=== PATIENT | female | born 1985 | race Asian ===

== ENCOUNTER → 2020-03-10 17:33 | Outpatient (CLI) | payer OTHER, SELFPAY ==
[2020-03-10 17:54] LABS: Add Manual Diff / Slide Review NO; Basophils Absolute Auto 100 /uL (0-100); Basophils Percent Auto 0.7 % (0-2); Bilirubin Urine UA NEGATIVE (NEGATIVE); Color Urine UA YELLOW; Eosinophils Absolute Auto 200 /uL (0-450); Eosinophils Percent Auto 1.5 % (2-4); Glucose Urine UA NEGATIVE (Negative); Hematocrit 39.1 % (36-46); Hemoglobin 13.2 g/dL (12.0-16.0); Ketones Urine UA NEGATIVE (NEGATIVE); Leukocyte Esterase Urine UA NEGATIVE (NEGATIVE); Lymphocytes Absolute Auto 2100 /uL (1100-4500); Lymphocytes Percent Auto 18.4 % (25-40); Mean Corpuscular HGB Conc 33.7 % (30-36); Mean Corpuscular Hemoglobin 31.3 PG (26-34); Monocytes Absolute Auto 600 /uL (0-900); Monocytes Percent Auto 5.5 % (3-14); Neutrophils Absolute Auto 8300 /uL (1500-7000); Neutrophils Percent Auto 73.9 % (50-75); Nitrite Urine UA NEGATIVE (Negative); Occult Blood Urine UA TRACE-INTACT (Negative); Platelet Count 257 X10^3/uL (150-400); Protein Urine UA NEGATIVE (Negative); Red Cell Distribution Width 12.7 % (11.6-14.8); Specific Gravity Urine UA 1.015 (1.000-1.035); Urobilinogen Urine UA 0.2 E.U./dL (0.2); White Blood Cell Count 11.2 X10^3/uL (4.5-11.0)
[2020-03-10 17:58] LABS: Appearance Urine UA SL CLOUDY
[2020-03-10 18:53] LABS: Hepatitis B Surface Antigen NEGATIVE s/c (NEGATIVE); Rubella Antibody IgG 16.1 IU/mL (>15)
[2020-03-10 19:01] LABS: HIV 1 & 2 Ab/Ag 4th Gen Combo NEGATIVE (NEGATIVE); Hep C Virus Ab w/Reflex Quant NEGATIVE s/c (NEGATIVE)
[2020-03-12 04:36] LABS: RPR Screen Non Reactive (Non Reactive)
[2020-03-12 12:53] LABS: Varicella IgG Antibody 3916 index (Immune >165)
== END ==
PROVIDERS: Referring Provider Specialist; Visit Provider Specialist
DX: Z34.01 Encounter for supervision of normal first pregnancy, first trimester (principal)
CPT/HCPCS: 36415; 80055; 81003; 86787; 86803; 86850; 86900; 86901; 87086; 87389

== ENCOUNTER → 2020-03-19 13:17 | Outpatient (CLI) | payer OTHER, SELFPAY ==
[2020-03-20 13:56] LABS: Specimen Label KIT TEST
== END ==
PROVIDERS: Referring Provider Specialist; Visit Provider Specialist
DX: O09.521 Supervision of elderly multigravida, first trimester (principal); Z36.0 Encounter for antenatal screening for chromosomal anomalies
CPT/HCPCS: 36415; 81420

== ENCOUNTER → 2020-05-23 14:14 | Outpatient (CLI) | payer OTHER, SELFPAY ==
--- NOTE | 2020-05-23 14:16 | DI.US.S_ITS ---
PROCEDURE: US OB >= 14 WEEKS FETUS INDICATIONS: 20 week anatomy OUTSIDE/PRIOR DATING DATA: Last menstrual period (LMP): 01/07/2020. LMP-based estimated date of delivery (HANNAH): 10/13/2020 First dating scan (date and location): 03/10/2020 Estimated date of delivery (HANNAH) from first dating scan: 10/13/2020 TECHNIQUE: Real-time scanning was performed of the fetus, with image documentation and biometric measurements. Endovaginal scanning: Not performed. COMPARISON: [facility], , OB <= 14 WEEKS FETUS, 03/10/2020, 16:55. FINDINGS: General: A single living intrauterine gestation is present. Presentation: Breech Placenta: Placental position is anterior, without previa. Amniotic fluid index: 10 cm, normal range is 5-24 cm. heart rate: 153 beats per minute. Maternal cervical canal: 5.6 cm long. Normal lower limit is 2.5 cm. biometrics: Biparietal diameter: 4.7 cm, 20 weeks 2 days Head circumference: 17.6 cm, 20 weeks 1 day Abdominal circumference: 14.6 cm, 19 weeks 6 days Femur length: 2.98 cm, 19 weeks 1 day Estimated gestational age from initial scan: 19 weeks 4 days Composite gestational age from present scan: 19 weeks 6 days Estimated weight and percentile: 304 g, 49th percentile Measurement variability for biometric dating: +/- 7 days from 14 weeks to 15 weeks 6 days gestation, +/- 10 days from 16 weeks to 21 weeks 6 days gestation, +/- 2 weeks from 22 weeks to 27 weeks 6 days gestation, +/- 3 weeks for 28 weeks gestation or later. weight reference: 4500 g or EFW >90/95% is considered macrosomia or large for gestational age. EFW <10% is small for gestational age. EFW 5% or less is considered intra-uterine growth restriction. Anatomic survey: Neuro: Ventricles are non-dilated at less than 10 mm. Cisterna magna is normal at 3-11 mm. Cerebellum is normal in size and morphology. Nuchal skin fold: Normal at less than 6 mm between 14-21 weeks gestational age. Face: Nose and lips, facial profile are normal. Spine: No evidence for spina bifida. Transverse images of the cervical in sacral spine not seen. Heart: 4-chambered heart is present, with normal right ventricular outflow tract. The left ventricular outflow tract is not well visualized. Diaphragm: Diaphragm is intact. Stomach: Left-sided stomach is present. Kidneys: No hydronephrosis. Normal is less than 5 mm in 2nd trimester, less than 7 mm in 3rd trimester. Cord: 3-vessel cord has orthotopic insertion. The anterior abdominal wall on either side of the cord insertion is not well visualized. Bladder: Normal in size. Extremities: The lower extremities are identified. 1 of the upper extremities is not well visualized. IMPRESSION: 1. Single live intrauterine . 2. Normal anatomic survey apart from suboptimal visualization of the LVOT, the upper limbs, the anterior abdominal wall, and transverse images of the cervical and sacral spine. Recommend further evaluation of these structures on follow-up exam. Dictated by: Rojas Cortes M.D. on 05/23/2020 at 17:48 Approved by: Rojas Cortes M.D. on 05/23/2020 at 18:00
== END ==
PROVIDERS: PCP Specialist; Referring Provider Specialist; Visit Provider Specialist
DX: Z34.02 Encounter for supervision of normal first pregnancy, second trimester (principal); Z3A.19 19 weeks gestation of pregnancy
CPT/HCPCS: 76811

== ENCOUNTER → 2020-05-30 14:29 | Outpatient (CLI) | payer OTHER, SELFPAY ==
[2020-06-03 06:36] LABS: AFP Value 95.3 ng/mL (.); Gest Age on Col Date 20.6 weeks (.); Gestational Age Ultrasound (.); Insulin Dep Diabetes No (.); OSBR Risk 1IN 2331 (.); Results Report (.); Test Results *Screen Negative* (.)
== END ==
PROVIDERS: Referring Provider Specialist; Visit Provider Specialist
DX: Z34.02 Encounter for supervision of normal first pregnancy, second trimester (principal); Z3A.19 19 weeks gestation of pregnancy
CPT/HCPCS: 36415; 82105

== ENCOUNTER → 2020-06-04 10:47 | Outpatient (CLI) | payer OTHER, SELFPAY ==
--- NOTE | 2020-06-04 10:48 | DI.US.S_ITS ---
PROCEDURE: US OB FOLLOW UP INDICATIONS: Anatomy scan F/U OUTSIDE/PRIOR DATING DATA: Last menstrual period (LMP): 01/07/2020. LMP-based estimated date of delivery (HANNAH): 10/13/2020. First dating scan (date and location): 03/10/2020. Estimated date of delivery (HANNAH) from first dating scan: 10/13/2020. TECHNIQUE: Real-time scanning was performed of the fetus, with image documentation. Endovaginal scanning: Not performed. COMPARISON: 05/23/2020. FINDINGS: General: A single living intrauterine gestation is present. Presentation: Cephalic, spine maternal right. Placenta: Placental position is anterior, without previa. Amniotic fluid index: 13.2 cm, normal range is 5-24 cm. heart rate: 150 beats per minute. Maternal cervical canal: 3.8 cm long. Normal lower limit is 2.5 cm. No funneling. Estimated gestational age from initial scan: 21 weeks 2 days Composite gestational age from present scan: Not performed. Measurement variability for biometric dating: +/- 7 days from 14 weeks to 15 weeks 6 days gestation, +/- 10 days from 16 weeks to 21 weeks 6 days gestation, +/- 2 weeks from 22 weeks to 27 weeks 6 days gestation, +/- 3 weeks for 28 weeks gestation or later. weight reference: 4500 g or EFW >90/95% is considered macrosomia or large for gestational age. EFW <10% is small for gestational age. EFW 5% or less is considered intra-uterine growth restriction. Other: LVOT, spine, cord insertion, abdominal wall, upper extremities are now visualized and are normal in appearance. movement is seen. IMPRESSION: 1. So living intrauterine at 21 weeks 2 days based on prior ultrasound dating. Cephalic position. 2. Normal placenta and amniotic fluid. 3. LVOT, spine, cord insertion, abdominal wall, upper extremities are normal in appearance. This completes the anatomic survey. Dictated by: Jason Vanegas M.D. on 06/04/2020 at 11:42 Approved by: Jason Vanegas M.D. on 06/04/2020 at 11:47
== END ==
PROVIDERS: Referring Provider Specialist; Visit Provider Specialist
DX: Z34.92 Encounter for supervision of normal pregnancy, unspecified, second trimester (principal); Z3A.21 21 weeks gestation of pregnancy
CPT/HCPCS: 76816

== ENCOUNTER → 2020-07-03 16:35 | Outpatient (CLI) | payer OTHER, SELFPAY ==
[2020-07-03 18:33] LABS: Hematocrit 36.5 % (36-46); Hemoglobin 12.3 g/dL (12.0-16.0)
[2020-07-03 21:07] LABS: GTT (PREG) 1 Hour PP 50gm Dose 143 mg/dL (76-139)
== END ==
PROVIDERS: Referring Provider Specialist; Visit Provider Specialist
DX: Z34.02 Encounter for supervision of normal first pregnancy, second trimester (principal)
CPT/HCPCS: 36415; 82950; 85014; 85018

== ENCOUNTER → 2020-07-07 11:10 | Outpatient (CLI) | payer OTHER, SELFPAY ==
[2020-07-07 12:34] LABS: Glucose Fasting Gestational 73 mg/dL (76-95)
[2020-07-07 13:27] LABS: Glucose 1 Hour Gest 139 mg/dL (76-180)
[2020-07-07 14:39] LABS: Glucose Tol Interp,Gestational INTERPRETATION
[2020-07-07 15:32] LABS: Glucose 2 Hour Gest 92 mg/dL (76-155)
[2020-07-07 15:36] LABS: Glucose 3 Hour Gest 45 mg/dL (76-140)
== END ==
PROVIDERS: Referring Provider Specialist; Visit Provider Specialist
DX: O09.522 Supervision of elderly multigravida, second trimester (principal); O99.810 Abnormal glucose complicating pregnancy
CPT/HCPCS: 36415; 82951; 82952

== ENCOUNTER → 2020-09-17 17:18 | Outpatient (CLI) | payer OTHER, SELFPAY ==
[2020-09-18 13:01] LABS: Strep Grp B PCR NEG for Grp B Strep
== END ==
PROVIDERS: Visit Provider Specialist
DX: Z34.03 Encounter for supervision of normal first pregnancy, third trimester (principal); Z3A.36 36 weeks gestation of pregnancy
CPT/HCPCS: 87653

== ENCOUNTER 2020-10-15 17:13 | Outpatient (CLI) | payer OTHER, SELFPAY ==
--- NOTE | 2020-10-15 17:51 | PM.OBTRLD ---
Visit Information Visit Information Date of evaluation: 10/15/20 Primary OB Provider: Doreen Steward Reason for Evaluation: Yes non-stress test non-stress test reason: other (Postdates) [facility] Medical History (Updated 10/15/20 @ 17:52 by Doreen Steward MD) AMA (advanced maternal age) primigravida 35+ Surgical History (Updated 02/26/20 @ 14:41 by Shobha Camacho, RN) H/O colposcopy with cervical biopsy [place] teeth extracted Family History (Updated 02/26/20 @ 14:37 by Shobha Camacho, RN) Mother No known health problems Father Hemorrhagic stroke Grandfather Old age Grandmother Ischemic stroke Hyperlipidemia TIA (transient ischemic attack) Grandfather Unknown whether patient has any health problems Grandmother Tuberculosis Family/Other [place] chorea Social History marital status: number of children: 0 household members: spouse lives independently: Yes pets and animals: Yes (X 1 Puppy ) 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 ) occupational status: employed current occupational exposures/hazards: Yes 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 Induction discussed with the patient. Induction consent form signed. Likely will be scheduled on 10/17/20 OB Disposition: home
== END 2020-10-15 17:55 | disposition home or self-care (01) ==
LOC: OB 10-16 07:36
PROVIDERS: Referring Provider Specialist; Visit Provider Specialist
DX: O48.0 Post-term pregnancy (principal); O09.513 Supervision of elderly primigravida, third trimester; Z3A.40 40 weeks gestation of pregnancy
CPT/HCPCS: 59025; G0378; G0379

== ENCOUNTER 2020-10-21 09:04 | Outpatient (CLI) | payer OTHER, SELFPAY ==
--- NOTE | 2020-10-21 09:50 | P.TNLD_ITS ---
Visit Information Visit Information Date of evaluation: 10/21/20 Primary OB Provider: Doreen Steward Reason for Evaluation: Yes non-stress test non-stress test reason: other (41 weeks gestation) [facility] Medical History (Updated 10/21/20 @ 09:21 by Doreen Steward MD) AMA (advanced maternal age) primigravida 35+ Surgical History (Updated 02/26/20 @ 14:41 by Shobha Camacho, RN) H/O colposcopy with cervical biopsy [place] teeth extracted Family History (Updated 02/26/20 @ 14:37 by Shobha Camacho, RN) Mother No known health problems Father Hemorrhagic stroke Grandfather Old age Grandmother Ischemic stroke Hyperlipidemia TIA (transient ischemic attack) Grandfather Unknown whether patient has any health problems Grandmother Tuberculosis Family/Other [place] chorea Social History marital status: number of children: 0 household members: spouse lives independently: Yes pets and animals: Yes (X 1 Puppy ) 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 Awaiting date for induction OB Disposition: home
== END 2020-10-21 09:50 | disposition home or self-care (01) ==
LOC: LABOR 09:13 → OB 10-23 07:55
PROVIDERS: Referring Provider Specialist; Visit Provider Specialist
DX: O48.0 Post-term pregnancy (principal); O09.513 Supervision of elderly primigravida, third trimester; Z3A.41 41 weeks gestation of pregnancy
CPT/HCPCS: 59025; G0378; G0379

== ENCOUNTER 2020-10-22 10:43 | Inpatient (IN) | payer OTHER, SELFPAY ==
[2020-10-22 11:39] LABS: Add Manual Diff / Slide Review NO; Basophils Absolute Auto 100 /uL (0-100); Basophils Percent Auto 0.6 % (0-2); Eosinophils Absolute Auto 0 /uL (0-450); Eosinophils Percent Auto 0.3 % (2-4); Hematocrit 38.9 % (36-46); Hemoglobin 13.1 g/dL (12.0-16.0); Lymphocytes Absolute Auto 1500 /uL (1100-4500); Mean Corpuscular HGB Conc 33.6 % (30-36); Mean Corpuscular Hemoglobin 30.8 PG (26-34); Mean Corpuscular Volume 91.5 fL (80-100); Monocytes Absolute Auto 600 /uL (0-900); Monocytes Percent Auto 5.9 % (3-14); Neutrophils Absolute Auto 8500 /uL (1500-7000); Neutrophils Percent Auto 79.2 % (50-75); Platelet Count 187 X10^3/uL (150-400); Red Blood Cell Count 4.25 X10^6/uL (4.0-5.2); Red Cell Distribution Width 13.4 % (11.6-14.8); White Blood Cell Count 10.8 X10^3/uL (4.5-11.0)
[2020-10-22] MEDS: LACTATED RINGERS 1,000 ML 100 ML IV ×2 (12:15→16:14)
[2020-10-22] MEDS: OXYTOCIN PREMIX 30 UNIT/500 ML PLAST..BAG IV (12:16)
[2020-10-22 12:36] LABS: COVID19 -Nasal RAPID Negative (Negative)
[2020-10-22 12:55] VITALS: BP 106/69
--- NOTE | 2020-10-22 15:21 | P.HPOB_ITS ---
OB HPI Date/Time Date of admission: 10/22/20 Date Patient Seen: 10/22/20 Time Patient Seen: 13:30 History of Present Condition Chief complaint: labor pains : 1 Para: 0 Estimated Date of Delivery: 10/13/20 Estimated Gestational Age (weeks): 41 Narrative: Tracy Lara is a 34 year old female admitted for postdates induction Indications Indication for induction OB: post dates History of Present care: good care, initiated at week # (9), number of visits (13) and pounds weight gain (26) Dating criteria: LMP confirmed by 1st trimester US Ultrasounds: normal mid trimester US Obstetrical complications: none Medical complications: none Preadmission Labs Blood type: B (+) positive -: Antibody screen: negative, GBS status: negative, HBsAG: negative, HIV: negative and RPR/VDLR: negative -: Chlamydia screen: not detected and Gonorrhea screen: not detected -: Rubella: immune and Varicella: immune HCAB: negative PAP: Normal Cell-free DNA: Normal 1 hr GTT: 143 3 hr GTT: 1 hr (139), 2 hr (92) and 3 hr (45) Fasting blood glucose: 73 Evaluation Evaluation Baseline heart rate: 125 Variability: Moderate (11-25) monitor accelerations: Present monitor decelerations: Absent Contraction Frequency (minutes): 0 Category of Tracing: Reactive Status: Category l Cervical dilation (cm): 2 Cervical effacement (%): 80 station: -2 Laboratory results: Laboratory Tests 10/22/20 10/22/20 10/22/20 11:24 11:24 11:24 WBC 10.8 RBC 4.25 Hgb 13.1 Hct 38.9 MCV 91.5 MCH 30.8 MCHC 33.6 RDW 13.4 Plt Count 187 Neut % (Auto) 79.2 H Lymph % (Auto) 14.0 L [place] % (Auto) 5.9 Eos % (Auto) 0.3 L Baso % (Auto) 0.6 Neut # (Auto) 8500 H Lymph # (Auto) 1500 [place] # (Auto) 600 Eos # (Auto) 0 Baso # (Auto) 100 SARS-CoV-2 (PCR) Negative Blood Type B Positive Antibody Screen Negative [facility] Medical History (Updated 10/21/20 @ 09:21 by Doreen Steward MD) AMA (advanced maternal age) primigravida 35+ Surgical History (Updated 02/26/20 @ 14:41 by Shobha Camacho, RN) H/O colposcopy with cervical biopsy [place] teeth extracted Family History (Updated 02/26/20 @ 14:37 by Shobha Camacho, RN) Mother No known health problems Father Hemorrhagic stroke Grandfather Old age Grandmother Ischemic stroke Hyperlipidemia TIA (transient ischemic attack) Grandfather Unknown whether patient has any health problems Grandmother Tuberculosis Family/Other [place] chorea Social History marital status: number of children: 0 household members: spouse lives independently: Yes pets and animals: Yes (X 1 Puppy ) 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 ) occupational status: employed current occupational exposures/hazards: Yes 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 Good movement. No leakage of fluid. ROS: Yes All systems reviewed with the patient and are negative except as otherwise documented Exam Vital Signs (past 8 hours): Blood pressure 113/63, pulse 96, temperature 36.3- 10/22/20 12:55 Blood Pressure 106/69 Narrative Exam Narrative: HEENT exam within normal limits. Lungs are clear to auscultation percussion heart is regular rate and rhythm no S3-S4 or murmurs. Abdomen is gravid. Fetus is vertex. Extremities without edema and nontender. Objective Labs Result Diagrams: 10/22/20 11:24 Labs: Laboratory Results - last 24 hr 10/22/20 10/22/20 10/22/20 11:24 11:24 11:24 WBC 10.8 RBC 4.25 Hgb 13.1 Hct 38.9 MCV 91.5 MCH 30.8 MCHC 33.6 RDW 13.4 Plt Count 187 Neut % (Auto) 79.2 H Lymph % (Auto) 14.0 L [place] % (Auto) 5.9 Eos % (Auto) 0.3 L Baso % (Auto) 0.6 Neut # (Auto) 8500 H Lymph # (Auto) 1500 [place] # (Auto) 600 Eos # (Auto) 0 Baso # (Auto) 100 SARS-CoV-2 (PCR) Negative Blood Type B Positive Antibody Screen Negative Assessment and Plan Assessment and Plan Assessment and Plan narrative: 34-year-old 1 para 0 at 41-,1/7 weeks for postdates induction with Pitocin. Anticipate vaginal delivery
--- NOTE | 2020-10-22 15:42 | PM.OBPNLAB ---
Date/Time Date Patient Seen: 10/22/20 Time Patient Seen: 15:20 Pain Control Pain control: tolerating well Pelvic Exam Dilation (cm): 2 Effacement (%): 80 station: -2 Amniotic membrane status: Intact Contractions Contractions on admission: regular Pitocin rate (mU/min): 6 Contraction frequency (min): 1 Contraction duration (min): 1 Contraction pattern: Regular Contraction intensity: Mild Status status: Category ll Heart Rate Baseline: 120 Monitor Accelerations: Present Monitor Decelerations: Variable (Patient with deceleration down to the 60s for 4-5 minutes due to contraction frequency) Monitor Variability: Moderate Comments: Patient with irregular contractions on 3 milliunits of Pitocin. Pitocin was increased to 6 milliunits than the contractions became too frequent with the decelerations. Baby responded to turning the Pitocin off, IV fluids, O2. Discuss that the patient is not doing well with Pitocin induction. Will change course and do a Farah bulb induction with hope that the patient goes into labor naturally. The Farah was placed through the cervix and the balloon inflated with 60 cc. Is placed on mild traction. Pitocin restarted at 1 bk unit. Assessment and Plan Assessment: induction ongoing
--- NOTE | 2020-10-23 09:26 | P.PCNOB_ITS ---
Events: Labor Induction (Postdates) Labor & Delivery Delivery date: 10/23/20 Intrapartal Events: Deceleration (Intermittent Repetitive severe decelerations) Cervical ripening method: per Farah bulb protocol Induction method: per pitocin protocol Delivery augmentation: rupture of membranes Delivery monitor: external FHT and external uterine Route of delivery: vacuum extraction Indication for instrumentation: nonreassuring FHR tracing L&D Laceration Description: Periurethral - 1st Degree and Perineal - 2nd Degree Delivery repair: chromic (3 0 and 4 0 chromic) Estimated blood loss (mL): 900 Anesthesia Type: Epidural Complications: Retained placenta requiring manual removal Narrative: Patient arrived on Labor and delivery for induction for post dates. She was started on Pitocin however at 6 milliunits of Pitocin the patient began having contractions so frequent that the fetus was having significant decelerations. The Pitocin was stopped. The baby responded to IV fluid bolus and O2 with the stopping of Pitocin with of reassuring heart rate. When the Pitocin was restarted due to infrequent contractions when she reached 2 milliunits she began having too frequent contractions and again had decelerations. Decision was made to try a Farah bulb. The Farah bulb was placed when she was 1-2 cm dilated 80% effaced and minus 1 station. At approximately a 4 hours the Farah bulb was expelled. Patient was having increasingly more painful contractions on her own so she was monitored. Her contractions decreased and she was AROM for clear fluid. Patient's contractions became more painful so she received an epidural catheter for pain control. She would have reassuring heart tones with occasional variable or late decelerations. Her contractions significantly decreased but every time Pitocin was began the contractions would couple which caused variable or late decelerations. She was switched to nipple stimulation for augmentation of her contractions. Patient eventually became completely dilated. With pushing the fetus began having more significant decelerations with slow return to baseline. Decision was made to proceed with vacuum extraction. The vacuum was placed for 1 contraction and the head was delivered. The rest of the baby was delivered and placed on maternal abdomen. The viable female did extremely well. After the cord stopped pulsating the cord was clamped, cut, and cord bloods obtained. The placenta did not deliver on its own after 30 minutes so manual removal was performed. The placenta appeared to be intact after removal. There was a three-vessel cord. There were no cervical or vaginal tears. She had a second-degree midline tear that was repaired in 2 layers with 3 0 chromic suture. She had a right labial minora tear from her right clitoral area that was repaired with 4-0 chromic suture. Due to the prolonged 3rd stage the patient's estimated blood loss was 900 cc. She did not have significant bleeding after removal of the placenta. Both infant and mother doing well. [place] Baby 1: Infant gender: Female Presentation: vertex Position: Right Occiput Anterior Placenta delivery description: Manual Removal Cord Vessel Description: 3 Vessels score (1 min): 8 score (5 min): 9 weight: 8 lb 11 oz Plan for aftercare: Routine care
[2020-10-23] MEDS: LANOLIN OINT 7 GM 1 APPLIC TOP (13:28)
[2020-10-23] MEDS: DERMOPLAST SPRAY 20% 60 ML 1 SPRAY TOP (13:29)
[2020-10-23] MEDS: IBUPROFEN 600 MG TABLET PO ×2 (14:49→20:41)
[2020-10-24] MEDS: IBUPROFEN 600 MG TABLET PO ×2 (04:24→11:37)
[2020-10-24 06:43] LABS: Add Manual Diff / Slide Review NO; Basophils Absolute Auto 100 /uL (0-100); Basophils Percent Auto 0.7 % (0-2); Eosinophils Absolute Auto 200 /uL (0-450); Eosinophils Percent Auto 1.2 % (2-4); Hemoglobin 10.4 g/dL (12.0-16.0); Lymphocytes Absolute Auto 2300 /uL (1100-4500); Lymphocytes Percent Auto 15.1 % (25-40); Mean Corpuscular HGB Conc 33.6 % (30-36); Mean Corpuscular Hemoglobin 30.9 PG (26-34); Mean Corpuscular Volume 91.9 fL (80-100); Monocytes Absolute Auto 900 /uL (0-900); Monocytes Percent Auto 5.5 % (3-14); Neutrophils Absolute Auto 12000 /uL (1500-7000); Neutrophils Percent Auto 77.5 % (50-75); Platelet Count 161 X10^3/uL (150-400); Red Blood Cell Count 3.38 X10^6/uL (4.0-5.2); Red Cell Distribution Width 13.6 % (11.6-14.8); White Blood Cell Count 15.5 X10^3/uL (4.5-11.0)
--- NOTE | 2020-10-24 11:42 | PM.OBDS.1 ---
Discharge Providers Provider Date of admission: 10/22/20 10:43 Discharge Date: 10/24/20 Consults: 10/22/20 11:24 Consult to Anesthesiology Urgent Comment: Consulting Provider: Anesthesiologist Reason for consultation: Epidural Has provider been notified: No 10/24/20 09:24 Consult to Human Resources Analyst Routine Comment: Discharge provider: Doreen Steward MD Summary Hospital Course Date Patient Seen: 10/24/20 Time Patient Seen: 11:43 Diagnoses: 41 week gestation, intolerance of labor, retained placenta, repair of right labial laceration and second-degree midline perineal tear Hospital Course: Patient arrived on Labor and delivery for induction at 41 weeks gestation. The baby did not tolerate Pitocin. She received a Farah bulb for further induction. She had an epidural catheter for pain control. She had a vacuum assisted vaginal delivery for intolerance of labor. She had a retained placenta that required manual removal. Patient is doing well . She denies headaches, scotomata, epigastric pain. Breast-feeding is going well. She is urinating and ambulating well. Her pain is under control. Peripartum Data Delivery Method: Assisted Delivery (vacuum assisted) Laceration Description: Periurethral - 1st Degree and Perineal - 2nd Degree Procedures: Pitocin and Farah bulb induction, epidural catheter, vacuum assisted vaginal delivery, manual removal of placenta complications: none [place] 1: Gender: Female Disposition of : home Discharge Diagnosis (1) Vacuum-assisted vaginal delivery: Status: Acute Status at Discharge Cognitive/behavioral status at discharge: oriented Functional status at discharge: independent ambulation Overall status at discharge: patient is progressing back to baseline Time Spent with Patient Time attestation: Total time spent providing and/or coordinating discharge services: Time spent: Less than 30 minutes Objective Labs Result Diagrams: 10/24/20 06:35 Labs: Laboratory Results - last 24 hr 10/24/20 06:35 WBC 15.5 H RBC 3.38 L Hgb 10.4 L Hct 31.0 L MCV 91.9 MCH 30.9 MCHC 33.6 RDW 13.6 Plt Count 161 Neut % (Auto) 77.5 H Lymph % (Auto) 15.1 L [place] % (Auto) 5.5 Eos % (Auto) 1.2 L Baso % (Auto) 0.7 Neut # (Auto) 34688 H Lymph # (Auto) 2300 [place] # (Auto) 900 Eos # (Auto) 200 Baso # (Auto) 100 Exam Vital Signs (past 8 hours): Blood pressure 105/67, pulse 60, temperature 98.3? Narrative Exam Narrative: Abdomen is soft, nontender. Uterus is firm, U +1, nontender. The repair is intact. Mild lochia. Extremities without edema and nontender. Patient is Rh positive, rubella immune, she received the Tdap in the 3rd trimester. Discharge Plan Discharge Plan Patient Disposition: Home Discharge orders & Medications Prescriptions: Continued Plus 29 mg iron- 1 mg tablet 1 tab PO DAILY Qty: 90 RF: 6 Follow up/Referrals: Doreen Steward MD [Physician] - 1 Month Diet/Activity/Treatments Diet: Regular Activity: nothing in vagina for 4 weeks Skin/Wound/Dressing Care Report to your healthcare provider any signs of infection, such as:: chills, fever and increased pain Visit Report/Discharge Packet Stand Alone Forms: Discharge: Care
[2020-10-24 11:46] VITALS: BP 105/67; PULSE 60; RESP 18; TEMP 36.8
== END 2020-10-24 13:45 | disposition home or self-care (01) | DRG 807 ==
PROVIDERS: Admitting Provider Specialist; Referring Provider Specialist; Visit Provider Specialist
DX: O48.0 Post-term pregnancy (principal); Z37.0 Single live birth; Z3A.41 41 weeks gestation of pregnancy; O76 Abnormality in fetal heart rate and rhythm complicating labor and delivery; O71.82 Other specified trauma to perineum and vulva; O70.1 Second degree perineal laceration during delivery; O73.0 Retained placenta without hemorrhage; Z20.822 Contact with and (suspected) exposure to COVID-19
CPT/HCPCS: 01967; 36415; 59050; 59400; 85025; 86850; 86900; 86901; 87635; C9803; G0379; J2590

== ENCOUNTER → 2022-03-08 15:52 | Outpatient (CLI) | payer OTHER, SELFPAY ==
[2022-03-08 20:30] LABS: Urine N gonorrhoeae NOT DETECTED
[2022-03-08 20:34] LABS: Urine Chlamydia NOT DETECTED
== END ==
PROVIDERS: Visit Provider Obstetrics & Gynecology
DX: Z34.81 Encounter for supervision of other normal pregnancy, first trimester (principal); Z3A.11 11 weeks gestation of pregnancy
CPT/HCPCS: 87491; 87591

== ENCOUNTER → 2022-03-10 10:50 | Outpatient (CLI) | payer OTHER, SELFPAY ==
[2022-03-10 12:54] LABS: COVID19 -Nasal RAPID Negative (Negative)
== END ==
PROVIDERS: Visit Provider Surgery
DX: Z20.822 Contact with and (suspected) exposure to COVID-19 (principal); Z01.812 Encounter for preprocedural laboratory examination
CPT/HCPCS: 87635; C9803

== ENCOUNTER 2022-03-11 08:40 | Day surgery (SDC) | payer OTHER, SELFPAY ==
[2022-03-11] VITALS (7 sets, daily range): BP systolic 93–111; BP diastolic 38–63; PULSE 56–69; RESP 12–16; TEMP 36.3–36.8; O2SAT 97–100; BMI 22.6
--- NOTE | 2022-03-11 | PATH_ITS ---
[facility] Accession Number: [id number] . 01 Material submitted: . product of conception - PRODUCTS OF CONCEPTION . 01 Diagnosis: Products of Conception, Curettings: Chorionic villi, decidualized tissue and blood clots, consistent with products of conception. V 03/15/2022 1053 Local . 01 Electronically signed: . Natalya Rick MD, Pathologist NPI- [id number] . 01 Gross description: . Received in formalin, labeled with the patient's name and products of conception, and consists of multiple fragments of velasquez, variable spongy to membranous soft tissue admixed with hemorrhagic material aggregating to 8.9 x 8.7 x 2.7 cm. No tissue is identified. Assistant Manager Of Operations sections are submitted in cassettes [id number]. ([id number]) /[facility] 03/13/2022 1043 Local . 01 Pathologist provided ICD-10: O02.1 . 01 CPT . 664724 Specimen Comment: A courtesy copy of this report has been sent to [phone] Performed at: 01 [facility] [address] [place] [address], [place], [place] [id number] MD Bunny Candelaria MD Phone: [phone]
[2022-03-11] MEDS: LACTATED RINGERS 1,000 ML 100 ML IV (09:23)
--- NOTE | 2022-03-11 09:47 | SUR.PREOP ---
09-admission completed. awaiting Mds to see. has cellphone and using as distraction. call freedman at side. [phone]-Dr Forbes at bedside speaking with patient.
--- NOTE | 2022-03-11 10:12 | PM.HP.1 ---
History of Present Illness History of Present Illness Date Patient Seen: 03/11/22 Time Patient Seen: 10:12 Chief complaint: D&C Narrative: Patient is a 36-year-old 2 para 1 with a missed at 8 weeks gestation. She presents for a suction D&C. Blood type is B positive Patient History Medical History AMA (advanced maternal age) primigravida 35+ Vacuum-assisted vaginal delivery (~10/23/20) Surgical History H/O colposcopy with cervical biopsy S/P skin biopsy [place] teeth extracted Family & Social History Family History (Updated 02/26/20 @ 14:37 by Shobha Camacho RN) Mother No known health problems Father Hemorrhagic stroke Grandfather Old age Grandmother Ischemic stroke Hyperlipidemia TIA (transient ischemic attack) Grandfather Unknown whether patient has any health problems Grandmother Tuberculosis Family/Other [place] chorea Social History: household members spouse,family,children lives independently Yes Tobacco & Substance use: Smoking Status Never smoker alcohol intake current alcohol intake frequency holiday/special occasion Substance Use Type does not use Meds Home Medications and Allergies Home Medications Medication Instructions Recorded Confirmed Type vitamins with calcium 1 tab PO DAILY #90 tabs 02/26/20 03/11/22 Rx no.72-iron 29 mg-folic acid 1 mg tablet ( Plus) Allergies Allergy/AdvReac Type Severity Reaction Status Date / Time No Known Drug Allergies Allergy Verified 03/11/22 08:55 Exam Vital Signs (past 8 hours): - 03/11/22 09:07 Temperature 98.2 F Pulse Rate 63 Respiratory Rate 16 Blood Pressure 93/61 Pulse Oximetry 100 Oxygen Delivery Method Room Air Oxygen Delivery Method Room Air Narrative Exam Narrative: HEENT: No thyromegaly, no anterior cervical or supraclavicular lymphadenopathy. Lungs:Clear to auscultation bilaterally, no wheezes. Cardiovascular: Regular rate and rhythm, no murmurs, rubs, or gallops. Abdomen: No scars. No hepatosplenomegaly. No masses palpable. External genitalia: Normal Vagina: Normal Cervix: Normal Bimanual exam: 8 Week size uterus. Mobile. Extremities: No edema Assessment & Plan Assessment & Plan narrative: Assessment: 36-year-old 2 para 1 with a missed at 8 weeks gestation B+ blood type Plan: Suction D&C The risks, benefits, and alternatives to the procedure were explained to the patient. The risks including bleeding, infection, and uterine perforation. She understands these risks and agrees to proceed. A full par Q was held and consent form was signed. COVID-19 COVID-19 status: Negative Result date/Date tested (Pos, Neg/Pending): 03/10/22 Time Spent With Patient Time with patient: less than 30 minutes Critical Care time: I spent a total of [] minutes of critical care time on this patient's care today; this time is exclusive of procedural time.
--- NOTE | 2022-03-11 10:15 | PM.PREOP ---
Pre-operative Note COVID-19 COVID-19 status: Negative Result date/Date tested (Pos, Neg/Pending): 03/10/22 Criteria for continued procedure: Non-surgical alternatives not available or appropriate per current SOC Interval Note History & Physical reviewed/Exam performed by Physician: Yes Changes to H&P: No H&P completed within 30 days and has changed as indicated here:: 03/11/22
--- NOTE | 2022-03-11 10:48 | SUR.OPER ---
Lithotomy on padded OR bed, head on pillow, arms secured on padded arm boards at <90 degrees abduction. Legs secured in padded yellow fins stirrups.
--- NOTE | 2022-03-11 10:58 | SUR.OPER ---
TISSUE SPECIMEN FOR F.I.S.H GIVEN TO DR. CONTRERAS
--- NOTE | 2022-03-11 11:20 | PM.GYNOP.1 ---
Operative Date/Time/Diagnoses Date of procedure: 03/11/22 Time of procedure: 11:20 Pre-op diagnosis: Missed Post-op diagnosis: same Procedure & Clinicians Procedure: Procedures Operation Date: 03/11/22 09:45 Actual Procedure Side Surgeon p Suction Dilation and Curettage Celeste Forbes MD Indications: Missed Surgeon: Celeste Forbes Anesthesia Type: General (LMA) Operative Notes Findings: 8 week size anteverted uterus Large amount of products of conception Closure Type: not applicable Specimen(s): products of conception Estimated blood loss (mL): 100 Blood products transfused: none Procedure in detail: After informed consent obtained, the patient was taken to the operating room and placed in the dorsolithotomy position and prepped and draped in the usual sterile fashion. A timeout was performed. A bivalve speculum was placed into the vagina. A single-tooth tenaculum was placed on the anterior lip of the cervix. The cervical os was sequentially dilated to the #8 Hegar dilator. The #8 curved plastic currette was placed into the uterine cavity. Several passes with suction revealed fluid, blood and tissue. Several more passes had blood only. The plastic currette was removed from the uterus. Gentle, sharp currettage was performed yielding blood only. The instruments were removed from the uterus. The singe-tooth tenaculum was removed from the anterior lip of the cervix. The bivalve speculum was removed from the vagina. Sponge, lap and instrument counts were correct x 2. The patient tolerated the procedure well and was taken to PACU in stable condition. Complications: none Post-operative Condition: stable Disposition: PACU Plan for aftercare: Home after recovery
== END 2022-03-11 11:50 | disposition home or self-care (01) ==
PROVIDERS: Referring Provider Obstetrics & Gynecology; Visit Provider Obstetrics & Gynecology
PROC: (CPT 58120; principal; 2022-03-11 09:45)
DX: O02.1 Missed abortion (principal)
CPT/HCPCS: 59820; J2250; J3010

== ENCOUNTER → 2022-05-13 15:00 | Outpatient (CLI) | payer OTHER, SELFPAY | PROVIDERS: Referring Provider Internal Medicine; Visit Provider Internal Medicine | DX: Z23 Encounter for immunization (principal) | CPT/HCPCS: 90471; 90686 ==

== ENCOUNTER → 2022-08-23 13:41 | Outpatient (CLI) | payer OTHER, SELFPAY ==
[2022-08-23 14:33] LABS: HCG Quantitative /Beta subunit 3394.7 mIU/mL
== END ==
PROVIDERS: Referring Provider Obstetrics & Gynecology; Visit Provider Obstetrics & Gynecology
DX: Z34.81 Encounter for supervision of other normal pregnancy, first trimester (principal)
CPT/HCPCS: 36415; 84702

== ENCOUNTER → 2022-08-25 07:16 | Outpatient (CLI) | payer OTHER, SELFPAY ==
[2022-08-25 08:45] LABS: HCG Quantitative /Beta subunit 5458.4 mIU/mL
== END ==
PROVIDERS: Referring Provider Obstetrics & Gynecology; Visit Provider Obstetrics & Gynecology
DX: Z34.81 Encounter for supervision of other normal pregnancy, first trimester (principal)
CPT/HCPCS: 36415; 84702

== ENCOUNTER 2022-09-15 15:54 | Day surgery (SDC) | payer OTHER, SELFPAY ==
[2022-09-15 16:08] VITALS: BMI 21.9
[2022-09-15 16:21] VITALS: BP 110/71; PULSE 74; RESP 16; TEMP 37.2; O2SAT 99
[2022-09-15] MEDS: LACTATED RINGERS 1,000 ML 42 ML IV (16:25)
--- NOTE | 2022-09-15 16:36 | P.HPOB_ITS ---
History of Present Illness History of Present Illness Reason for admission: missed Narrative: Tracy Lara is a 36 year old female 4 para 1 who presents for a suction D&C due to a missed at 6 weeks 6 days. She received misoprostol x2. Small amount of spotting only. Patient is leaving for vacation tomorrow evening. [facility] Medical History (Updated 08/23/22 @ 10:13 by Yahaira Scott, RN) AMA (advanced maternal age) primigravida 35+ Vacuum-assisted vaginal delivery (~10/23/20) Surgical History (Updated 05/13/22 @ 10:33 by Yahaira Scott, FAUSITNO) H/O colposcopy with cervical biopsy H/O dilation and curettage S/P skin biopsy [place] teeth extracted Family History (Updated 03/14/22 @ 22:19 by Alessandra Samuel) Mother No known health problems Father Hemorrhagic stroke Hypertension Grandfather Old age Grandmother Ischemic stroke Hyperlipidemia TIA (transient ischemic attack) Grandfather Unknown whether patient has any health problems Grandmother Tuberculosis Family/Other Ministerio chorea Social History marital status: number of children: 1 household members: spouse, family and children lives independently: Yes housing: house pets and animals: Yes (1 dog) education level: other (doctorate) occupational status: employed current occupational exposures/hazards: Yes 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 needs: No travel history: recent (domestic only) seatbelt use: always helmet use: Yes water heater temp set < 120 deg: Yes working smoke detector in home: Yes fire extinguisher in home: Yes carbon monox detector in home: Yes firearms in home: No do you feel safe at home: Yes Smoking Status: Never smoker second hand exposure: No alcohol intake: current substance use type: does not use during the past year weight has: other (currently back to pre-baby wt from 1st child.) well-balanced diet: daily or most days daily servings fruits/ve-4 caffeine: Yes (Aware of 200 mg limit) Type(s) of exercise: running frequency: 3-4 times per week Meds Home Medications and Allergies Home Medications Medication Instructions Recorded Confirmed Type vitamins with calcium 1 tab PO DAILY #90 tabs 02/26/20 09/15/22 Rx no.72-iron 29 mg-folic acid 1 mg tablet ( Plus) Allergies Allergy/AdvReac Type Severity Reaction Status Date / Time No Known Drug Allergies Allergy Verified 09/15/22 16:06 Exam Vital Signs (past 8 hours): - 09/15/22 16:21 Temperature 99 F Pulse Rate 74 Respiratory Rate 16 Blood Pressure 110/71 Pulse Oximetry 99 Oxygen Delivery Method Room Air Oxygen Delivery Method Room Air Narrative Exam Narrative: HEENT: No thyromegaly, no anterior cervical or supraclavicular lymphadenopathy. Lungs:Clear to auscultation bilaterally, no wheezes. Cardiovascular: Regular rate and rhythm, no murmurs, rubs, or gallops. Abdomen: No scars. No hepatosplenomegaly. No masses palpable. External genitalia: Normal Vagina: Normal Cervix: Normal Bimanual exam: 7 Week size anteverted uterus. Mobile. No adnexal masses or tenderness Extremities: No edema Assessment & Plan Assessment & Plan narrative: Assessment: 36-year-old 4 para 1 with a missed at 6 weeks 6 days. Plan: Suction D&C The risks, benefits, and alternatives to the procedure were explained to the patient. The risks including bleeding, infection, uterine perforation. She understands these risks and agrees to proceed. A full par Q was held and consent form was signed. Time Spent With Patient Time with patient: less than 30 minutes Critical Care time: I spent a total of [] minutes of critical care time on this patient's care today; this time is exclusive of procedural time.
--- NOTE | 2022-09-15 16:41 | PM.PREOP ---
Pre-operative Note COVID-19 Criteria for continued procedure: Non-surgical alternatives not available or appropriate per current SOC Interval Note History & Physical reviewed/Exam performed by Physician: Yes Changes to H&P: No H&P completed within 30 days and has changed as indicated here:: 09/15/22
--- NOTE | 2022-09-15 17:09 | SUR.OPER ---
Lithotomy on padded OR bed, head on pillow, arms secured on padded arm boards at <90 degrees abduction. Legs secured in padded yellow fins stirrups.
--- NOTE | 2022-09-15 17:15 | PM.GYNOP.1 ---
Operative Date/Time/Diagnoses Date of procedure: 09/15/22 Time of procedure: 17:15 Pre-op diagnosis: Missed at 6 weeks 6 days Post-op diagnosis: same Procedure & Clinicians Procedure: Procedures Operation Date: 09/15/22 16:15 Actual Procedure Side Surgeon p suction D&C Not Applicable Celeste Forbes MD Indications: Missed at 6 weeks 6 days Failed misoprostol x2 Surgeon: Celeste Forbes Anesthesia Type: MAC +/- Operative Notes Findings: 7 week size anteverted uterus Large amount of products conception Closure Type: not applicable Specimen(s): products of conception (FISH for [employer]) Estimated blood loss (mL): 75 Blood products transfused: none Procedure in detail: After informed consent was obtained, the patient was taken to the operating room where she was placed in the dorsal supine position. After adequate MAC anesthesia was performed, she was placed in the dorsal lithotomy position, and prepped and draped in the usual sterile fashion. A time-out was performed. A bivalve speculum was placed into the vagina and the anterior lip of the cervix was grasped with a single-tooth tenaculum. The cervical os was sequentially dilated until the plastic curved # 7 curette passed easily into the endometrial cavity. Initial pass with suction revealed a large amount of fluid and tissue. The next pass with suction revealed a small amount of tissue. The third pass with suction revealed blood only. The suction curette was removed from the uterus. The single-tooth tenaculum was removed from the anterior lip of the cervix. The bivalve speculum was removed from the vagina. Sponge, lap, and instrument counts were correct x2. The patient tolerated the procedure well, and was taken to PACU in stable condition. Complications: none Post-operative Condition: stable Disposition: PACU Plan for aftercare: Home after recovery
[2022-09-15 17:20] VITALS: BP 107/64; PULSE 83; RESP 22; TEMP 37.2; O2SAT 98
[2022-09-15 17:25] VITALS: BP 99/62; PULSE 69; RESP 14; TEMP 37.2; O2SAT 96
[2022-09-15 17:31] VITALS: BP 96/64; PULSE 78; RESP 13; TEMP 37.2; O2SAT 95
[2022-09-15 17:35] VITALS: BP 99/68; PULSE 71; RESP 14; TEMP 37.2; O2SAT 96
[2022-09-15] MEDS: ACETAMINOPHEN 325 MG TABLET PO (17:39)
[2022-09-15 17:50] VITALS: BP 99/65; PULSE 68; RESP 18; TEMP 37.2; O2SAT 99
== END 2022-09-15 17:55 | disposition home or self-care (01) ==
PROVIDERS: Referring Provider Obstetrics & Gynecology; Visit Provider Obstetrics & Gynecology
PROC: (CPT 58120; principal; 2022-09-15 16:15)
DX: O02.1 Missed abortion (principal); Z3A.01 Less than 8 weeks gestation of pregnancy
CPT/HCPCS: 59820; J1885; J2704

== ENCOUNTER → 2022-10-14 11:59 | Outpatient (CLI) | payer OTHER, SELFPAY ==
[2022-10-14 13:16] LABS: Glucose 99 mg/dL (70-100)
[2022-10-14 13:33] LABS: Free T4, Direct Thyroxine 0.86 ng/dL (0.78-2.19)
[2022-10-14 13:47] LABS: Thyroid Stimulating Hormone 1.71 uIU/mL (0.47-4.68)
[2022-10-26 12:43] LABS: Cardiolipin IgA Negative (.); Recommendations Comment: (.)
== END ==
PROVIDERS: Referring Provider Obstetrics & Gynecology; Visit Provider Obstetrics & Gynecology
DX: O26.21 Pregnancy care for patient with recurrent pregnancy loss, first trimester (principal); Z3A.00 Weeks of gestation of pregnancy not specified
CPT/HCPCS: 36415; 82947; 83520; 84439; 84443; 86147; 86148

== ENCOUNTER → 2022-12-06 13:44 | Outpatient (CLI) | payer OTHER, SELFPAY | PROVIDERS: Referring Provider Obstetrics & Gynecology; Visit Provider Obstetrics & Gynecology | DX: N96 Recurrent pregnancy loss (principal); Z82.79 Family history of other congenital malformations, deformations and chromosomal abnormalities | CPT/HCPCS: 36415; 88230; 88262 ==

== ENCOUNTER → 2023-02-17 12:41 | Outpatient (CLI) | payer OTHER, SELFPAY ==
[2023-02-17 13:27] LABS: HCG Quantitative /Beta subunit 1835.6 mIU/mL
== END ==
PROVIDERS: Referring Provider Obstetrics & Gynecology; Visit Provider Obstetrics & Gynecology
DX: N91.2 Amenorrhea, unspecified (principal)
CPT/HCPCS: 36415; 84702

== ENCOUNTER → 2023-02-19 11:49 | Outpatient (CLI) | payer OTHER, SELFPAY ==
[2023-02-19 13:56] LABS: HCG Quantitative /Beta subunit 5021.2 mIU/mL
== END ==
PROVIDERS: Referring Provider Obstetrics & Gynecology; Visit Provider Obstetrics & Gynecology
DX: N91.2 Amenorrhea, unspecified (principal)
CPT/HCPCS: 36415; 84702

== ENCOUNTER → 2023-05-30 14:55 | Outpatient (CLI) | payer OTHER, SELFPAY ==
[2023-06-01 22:33] LABS: AFP Value 81.1 ng/mL (.); Gest Age on Col Date 19.3 weeks (.); Insulin Dep Diabetes No (.); OSBR Risk 1IN 2523 (.); Results Report (.); Test Results *Screen Negative* (.)
== END ==
PROVIDERS: Obstetrics & Gynecology; Referring Provider Pediatrics; Visit Provider Pediatrics
DX: Z34.82 Encounter for supervision of other normal pregnancy, second trimester (principal); Z3A.19 19 weeks gestation of pregnancy
CPT/HCPCS: 36415; 82105

== ENCOUNTER → 2023-07-07 13:49 | Outpatient (CLI) | payer OTHER, SELFPAY ==
[2023-07-07 17:04] LABS: Hemoglobin 11.5 g/dL (12.0-16.0)
[2023-07-07 17:28] LABS: GTT (PREG) 1 Hour PP 50gm Dose 144 mg/dL (76-139)
== END ==
PROVIDERS: Referring Provider Obstetrics & Gynecology; Visit Provider Obstetrics & Gynecology
DX: Z34.82 Encounter for supervision of other normal pregnancy, second trimester (principal); Z3A.24 24 weeks gestation of pregnancy
CPT/HCPCS: 36415; 82950; 85014; 85018

== ENCOUNTER → 2023-08-08 10:11 | Outpatient (CLI) | payer OTHER, SELFPAY ==
[2023-08-08 12:36] LABS: Glucose 1 Hour Gest 112 mg/dL (76-180)
[2023-08-08 13:33] LABS: Glucose Tol Interp,Gestational INTERPRETATION
[2023-08-08 13:34] LABS: Glucose 2 Hour Gest 118 mg/dL (76-155)
[2023-08-08 14:12] LABS: Glucose 3 Hour Gest 50 mg/dL (76-140)
[2023-08-08 16:49] LABS: Glucose Fasting Gestational 75 mg/dL (76-95)
== END ==
LOC: LAB 10:12
PROVIDERS: Referring Provider Obstetrics & Gynecology; Visit Provider Obstetrics & Gynecology
DX: O99.810 Abnormal glucose complicating pregnancy (principal)
CPT/HCPCS: 36415; 82951; 82952

== ENCOUNTER → 2023-09-22 12:13 | Outpatient (CLI) | payer OTHER, SELFPAY ==
[2023-09-23 12:32] LABS: Strep Grp B PCR POS for Grp B Strep
== END ==
PROVIDERS: Visit Provider Obstetrics & Gynecology
DX: Z34.83 Encounter for supervision of other normal pregnancy, third trimester (principal); Z3A.36 36 weeks gestation of pregnancy
CPT/HCPCS: 87653

== ENCOUNTER 2023-10-18 06:36 | Inpatient (IN) | payer OTHER, SELFPAY ==
--- NOTE | 2023-10-18 07:42 | P.HPOB_ITS ---
OB HPI Date/Time Date of admission: 10/18/23 Date Patient Seen: 10/18/23 Time Patient Seen: 07:42 History of Present Condition Chief complaint: induction : 5 Para: 1 Estimated Date of Delivery: 10/22/23 Estimated Gestational Age (weeks): 39 Narrative: Tracy Lara is a 37 year old female admitted for induction for advanced maternal age at 39 weeks Indications Indication for induction OB: other (Advanced maternal age) History of Present care: good care, initiated at week # (8), number of visits (9) and pounds weight gain (23) Dating criteria: LMP confirmed by 1st trimester US Ultrasounds: normal mid trimester US Abnormal ultrasound findings: Initial concerns about baby's heart with normal echo Obstetrical complications: none Medical complications: none Preadmission Labs Blood type: B (+) positive -: Antibody screen: negative, GBS status: positive, HBsAG: negative, HIV: negative and RPR/VDLR: negative -: Chlamydia screen: not detected and Gonorrhea screen: not detected -: Rubella: immune and Varicella: immune HCAB: negative Cell-free DNA: Normal 1 hr GTT: 144 3 hr GTT: 1 hr (112), 2 hr (118) and 3 hr (50) Fasting blood glucose: 75 Prior (ies) History: 10/23/20 41.3 8 lb 11 oz Femalevacuumlive - full term [facility] as of 02/22/22post-dates induction noneMargaret 03/11/22 8 spontaneous abortiongeneral 09/15/[address] [facility] Evaluation Evaluation Baseline heart rate: 120 Variability: Moderate (11-25) monitor accelerations: Present Monitor Decelerations: Absent Contraction Frequency (minutes): 0 Category of Tracing: Reactive Status: Category l Dilation (cm): 2 Effacement (%): 50 Dilation: 1-2 cm Effacement: 40-50% station: -1 Position of cervix: posterior Consistency: medium Covarrubias score: 5 PFSH Medical History (Updated 10/02/23 @ 20:49 by Celeste Forbes MD) Vacuum-assisted vaginal delivery (~10/23/20) AMA (advanced maternal age) primigravida 35+ Surgical History (Updated 05/13/22 @ 10:33 by Yahaira Scott RN) H/O dilation and curettage S/P skin biopsy H/O colposcopy with cervical biopsy [place] teeth extracted Family History (Updated 03/14/22 @ 22:19 by Alessandra Samuel) Mother No known health problems Father Hemorrhagic stroke Hypertension Grandfather Old age Grandmother Ischemic stroke Hyperlipidemia TIA (transient ischemic attack) Grandfather Unknown whether patient has any health problems Grandmother Tuberculosis Family/Other Ministerio chorea Social History marital status: number of children: 1 household members: spouse, family and children lives independently: Yes housing: house pets and animals: Yes (1 dog) education level: other (doctorate) occupational status: employed current occupational exposures/hazards: Yes 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 needs: No travel history: recent (domestic only) seatbelt use: always helmet use: Yes water heater temp set < 120 deg: Yes working smoke detector in home: Yes fire extinguisher in home: Yes carbon monox detector in home: Yes firearms in home: No do you feel safe at home: Yes Smoking Status: Never smoker second hand exposure: No alcohol intake: current substance use type: does not use during the past year weight has: other (currently back to pre-baby wt from 1st child.) well-balanced diet: daily or most days daily servings fruits/ve-4 caffeine: Yes (Aware of 200 mg limit) Type(s) of exercise: running frequency: 3-4 times per week Meds Home Medications and Allergies Home Medications Medication Instructions Recorded Confirmed Type vitamins with calcium 1 tab PO DAILY #90 tabs 02/26/20 10/14/23 Rx no.72-iron 29 mg-folic acid 1 mg tablet ( Plus) progesterone micronized 200 mg 200 mg PO DAILY #30 caps 04/20/23 10/14/23 Rx capsule (Prometrium) breast pump #1 ea 10/11/23 10/14/23 Rx Allergies Allergy/AdvReac Type Severity Reaction Status Date / Time No Known Drug Allergies Allergy Verified 10/14/23 12:11 Review of Systems Review of Systems Narrative: Patient denies rupture membranes, vaginal bleeding, headaches or scotomata. Good movement. No regular contractions. OB Exam Vital signs Blood Pressure: 107/70 Pulse Rate: 70 Temperature: 36.7 F Narrative Exam Narrative: HEENT exam within normal limits. Lungs are clear to auscultation percussion. Heart is regular rate and rhythm no S3-S4 murmurs. Abdomen is gravid. Fetus is vertex. Extremities without edema and nontender. Objective Labs 10/18/23 07:30 Assessment and Plan Assessment and Plan Assessment and Plan narrative: 37-year-old 5 para 1 EDC 4 6 at 39 weeks 3 days admitted for induction for advanced maternal age. A Farah bulb was placed. She is group B strep positive so will start ampicillin.
[2023-10-18 07:58] LABS: Add Manual Diff / Slide Review NO; Basophils Absolute Auto 100 /uL (0-100); Eosinophils Absolute Auto 100 /uL (0-450); Eosinophils Percent Auto 0.9 % (2-4); Hematocrit 37.6 % (36-46); Hemoglobin 12.7 g/dL (12.0-16.0); Lymphocytes Absolute Auto 2100 /uL (1100-4500); Lymphocytes Percent Auto 21.8 % (25-40); Mean Corpuscular HGB Conc 33.7 % (30-36); Mean Corpuscular Hemoglobin 30.9 PG (26-34); Mean Corpuscular Volume 91.7 fL (80-100); Monocytes Absolute Auto 700 /uL (0-900); Monocytes Percent Auto 6.6 % (3-14); Neutrophils Absolute Auto 6900 /uL (1500-7000); Neutrophils Percent Auto 69.7 % (50-75); Platelet Count 168 X10^3/uL (150-400); Red Blood Cell Count 4.11 X10^6/uL (4.0-5.2); Red Cell Distribution Width 13.4 % (11.6-14.8); White Blood Cell Count 9.9 X10^3/uL (4.5-11.0)
[2023-10-18 08:19] VITALS: BP 107/70; PULSE 70; TEMP 2.6; TEMP 36.7
[2023-10-18 09:26] VITALS: BP 107/70
--- NOTE | 2023-10-18 13:26 | PM.OBPNLAB ---
Date/Time Date Patient Seen: 10/18/23 Time Patient Seen: 13:26 Pain Control Pain control: tolerating well Pelvic Exam Dilation (cm): 5 Effacement (%): 50 station: -2 Amniotic membrane status: Intact Contractions Contractions on admission: irregular Monitor mode: External Contraction frequency (min): 5 Contraction duration (min): 1 Contraction pattern: Irregular Contraction intensity: Mild Status status: Category l Heart Rate Baseline: 120 Monitor Accelerations: Present Monitor Decelerations: Absent Monitor Variability: Moderate Assessment and Plan Assessment: induction ongoing Plan: begin patient augmentation
[2023-10-18] MEDS: LACTATED RINGERS 1,000 ML 100 ML IV (14:30)
[2023-10-18] MEDS: OXYTOCIN PREMIX 30 UNIT/500 ML PLAST..BAG IV (14:32)
--- NOTE | 2023-10-18 17:19 | PM.OBPNLAB ---
Date/Time Date Patient Seen: 10/18/23 Time Patient Seen: 17:19 Pain Control Pain control: tolerating well Pelvic Exam Dilation (cm): 5 Effacement (%): 50 station: -2 Amniotic membrane status: Intact Contractions Contractions on admission: regular Monitor mode: External Pitocin rate (mU/min): 8 Contraction frequency (min): 3 Contraction duration (min): 1 Contraction pattern: Regular Contraction intensity: Moderate Status status: Category l Heart Rate Baseline: 120 Monitor Accelerations: Present Monitor Decelerations: Absent Monitor Variability: Moderate Assessment and Plan Assessment: induction ongoing Plan: continuous present management
[2023-10-18] MEDS: AMPICILLIN 2,000 MG in SODIUM CHLORIDE 0.9% 100 ML 200 MG IV (18:11)
--- NOTE | 2023-10-18 19:17 | PM.OBPNLAB ---
Date/Time Date Patient Seen: 10/18/23 Time Patient Seen: 19:17 Pain Control Pain control: tolerating well Pelvic Exam Dilation (cm): 6 Effacement (%): 80 station: 0 Amniotic membrane status: Ruptured (AROM for clear fluid) Contractions Contractions on admission: regular Monitor mode: External Pitocin rate (mU/min): 10 Contraction frequency (min): 3 Contraction duration (min): 1 Contraction pattern: Regular Contraction intensity: Strong/Firm Status status: Category l Heart Rate Baseline: 120 Monitor Accelerations: Present Monitor Decelerations: Absent Monitor Variability: Moderate Assessment and Plan Assessment: active labor Plan: continuous present management
[2023-10-18] MEDS: LACTATED RINGERS 500 ML 1000 ML IV (19:52)
[2023-10-18] MEDS: LIDOCAINE 1% 20 ML INJ (20:10)
--- NOTE | 2023-10-18 20:28 | P.PCNOB_ITS ---
Labor & Delivery Delivery date: 10/18/23 Cervical ripening method: per Farah bulb protocol Delivery augmentation: rupture of membranes and pitocin Delivery monitor: external FHT and external uterine Route of delivery: L&D Laceration Description: Perineal - 2nd Degree Delivery repair: chromic (3-0) Anesthesia Type: Local (For repair, 15 cc of 1% lidocaine) Narrative: Patient arrived on Labor and delivery for induction for term with advanced maternal age. A Farah bulb was used for induction. After several hours the Farah bulb was expelled into the vagina. At that point she was 4-5 cm dilated. Pitocin was begun. The patient was comfortable with regular contractions and was AROM for clear fluid. The patient progressed rapidly and was delivered by the nurse in the hands and knee position a viable male . The cord was cut and clamped. I arrived shortly after. The placenta was delivered spontaneously, intact, with 3 vessels. There were no cervical or vaginal tears. A second-degree perineal tear was injected with lidocaine with epinephrine. The repair was performed with 3-0 chromic suture in the usual 2 la césar fashion. heart tones throughout labor were category 1 to category 2. Both and mother doing well. Baby 1: Infant gender: Male Presentation: vertex Position: Right Occiput Anterior Placenta delivery description: Spontaneous Cord Vessel Description: 3 Vessels score (1 min): 8 score (5 min): 9 weight: 7 lb 8 oz Plan for aftercare: Routine care
[2023-10-18] MEDS: IBUPROFEN 600 MG TABLET PO (23:26)
[2023-10-18] MEDS: DERMOPLAST SPRAY 20% 60 ML 1 SPRAY TOP (23:26)
[2023-10-19 05:59] LABS: Add Manual Diff / Slide Review NO; Basophils Absolute Auto 100 /uL (0-100); Basophils Percent Auto 0.7 % (0-2); Eosinophils Absolute Auto 100 /uL (0-450); Eosinophils Percent Auto 0.6 % (2-4); Hematocrit 32.3 % (36-46); Hemoglobin 11.1 g/dL (12.0-16.0); Lymphocytes Absolute Auto 2200 /uL (1100-4500); Lymphocytes Percent Auto 14.2 % (25-40); Mean Corpuscular HGB Conc 34.5 % (30-36); Mean Corpuscular Hemoglobin 31.3 PG (26-34); Mean Corpuscular Volume 90.9 fL (80-100); Monocytes Absolute Auto 800 /uL (0-900); Monocytes Percent Auto 5.4 % (3-14); Neutrophils Absolute Auto 12200 /uL (1500-7000); Neutrophils Percent Auto 79.1 % (50-75); Platelet Count 150 X10^3/uL (150-400); Red Blood Cell Count 3.56 X10^6/uL (4.0-5.2); Red Cell Distribution Width 13.6 % (11.6-14.8); White Blood Cell Count 15.4 X10^3/uL (4.5-11.0)
--- NOTE | 2023-10-19 07:53 | PM.OBDS.1 ---
Discharge Providers Provider Date of admission: 10/18/23 06:36 Discharge Date: 10/19/23 Primary care physician: Doctor Eliza MD Consults: 10/19/23 20:25 Consult to [employer] Supervisor Routine Comment: Discharge provider: Doreen Steward MD Summary Hospital Course Date Patient Seen: 10/19/23 Time Patient Seen: 07:53 Diagnoses: 39 week gestation admitted for induction for advanced maternal age. Vaginal delivery with repair of second-degree perineal tear Hospital Course: Patient arrived on Labor and delivery for induction. She received a Farah bulb followed by Pitocin. Patient had a precipitous vaginal delivery of a viable male assisted by the nurse. Patient had a second-degree perineal tear that was repaired. Patient is without difficulty. She is urinating and ambulating well. No pain. Lochia is decreasing. Peripartum Data Infant Delivery Method: Natural Vaginal Laceration Description: Perineal - 2nd Degree Procedures: Farah bulb and Pitocin induction, spontaneous vaginal delivery with repair of second-degree perineal tear complications: none 1: Gender: Male Disposition of : home Discharge Diagnosis (1) Vaginal delivery: Status: Acute Status at Discharge Cognitive/behavioral status at discharge: oriented Functional status at discharge: independent ambulation Overall status at discharge: patient is progressing back to baseline Time Spent with Patient Time attestation: Total time spent providing and/or coordinating discharge services: Time spent: Less than 30 minutes Objective Labs 10/19/23 05:50 Labs: Laboratory Results - last 24 hr 10/18/23 10/19/23 07:30 05:50 WBC 9.9 15.4 H D RBC 4.11 3.56 L Hgb 12.7 11.1 L Hct 37.6 32.3 L MCV 91.7 90.9 MCH 30.9 31.3 MCHC 33.7 34.5 RDW 13.4 13.6 Plt Count 168 150 Neut % (Auto) 69.7 79.1 H Lymph % (Auto) 21.8 L 14.2 L [place] % (Auto) 6.6 5.4 Eos % (Auto) 0.9 L 0.6 L Baso % (Auto) 1.0 0.7 Neut # (Auto) 6900 71703 H Lymph # (Auto) 2100 2200 Sutton # (Auto) 700 800 Eos # (Auto) 100 100 Baso # (Auto) 100 100 Blood Type B Positive Antibody Screen Negative Exam Vital Signs (past 8 hours): Blood pressure 98/57, pulse 68, temperature 98.7? Narrative Exam Narrative: Abdomen is soft, nontender. Uterus is U-1 and nontender. Repair is intact. Extremities without edema and nontender. Discharge Plan Discharge Plan Patient Disposition: Home Discharge orders & Medications Prescriptions: Continued Plus 29 mg iron- 1 mg tablet 1 tab PO DAILY Qty: 90 6RF Rx Instructions: give with meal/snack Discontinued progesterone micronized [Prometrium] 200 mg capsule 200 mg PO DAILY Qty: 30 3RF Patient Comments: just taken during first trimester No Action (DME) breast pump Device See Rx Instructions .ROUTE .MEDSUPPLY Qty: 1 0RF Rx Instructions: Breast pump and supplies Follow up/Referrals: Celeste Forbes MD [Physician] - 6 Weeks ( exam) Doctor Kay MD [Primary Care Provider] - Diet/Activity/Treatments Diet: Regular Activity: Nothing in vagina for 6 weeks Skin/Wound/Dressing Care Report to your healthcare provider any signs of infection, such as:: chills, fever and increased pain Visit Report/Discharge Packet Stand Alone Forms: Discharge: Care, Patient Portal/API, Stroke Signs & Symptoms Discharge Data Primary Care Provider: Doctor Eliza
[2023-10-19] MEDS: IBUPROFEN 600 MG TABLET PO ×2 (08:26→14:32)
[2023-10-19] MEDS: PRENATAL VIT,CALC/IRON/FOLIC 1 TABLET 1 TAB PO (08:27)
[2023-10-19 12:02] VITALS: BP 96/60; PULSE 69; RESP 18; TEMP 36.6
== END 2023-10-19 15:50 | disposition home or self-care (01) | DRG 807 ==
PROVIDERS: Specialist; Admitting Provider Obstetrics & Gynecology; Referring Provider Obstetrics & Gynecology; Visit Provider Obstetrics & Gynecology
DX: O99.824 Streptococcus B carrier state complicating childbirth (principal); Z37.0 Single live birth; O70.1 Second degree perineal laceration during delivery; Z3A.39 39 weeks gestation of pregnancy
CPT/HCPCS: 36415; 59050; 59200; 59400; 59409; 85025; 86850; 86900; 86901; G0379; J0290; J2590